=== PATIENT | female | born 1955 | race Caucasian/White ===

== ENCOUNTER 2016-12-25 18:38 | Inpatient (IN) | payer BC ==
[2016-12-25] MEDS ORDERED: NS 1000 ML 1,000 ML IV SCH (19:30)
[2016-12-25] MEDS ORDERED: HEPARIN SODIUM IN D5W 25,000 UNITS/500 ML BAG IV PRN ×2 (19:30→21:50)
[2016-12-25 20:08] LABS: ALBUMIN 3.1 g/dL (3.4-5.0); CALCIUM 9.2 mg/dL (8.5-10.1); CARBON DIOXIDE 27.7 mmol/L (21-32); COR CA(FOR HYPOALB) 9.9 mg/dL (8.5-10.1); CREATININE 1.78 mg/dL (0.55-1.02); TOTAL PROTEIN 7.1 g/dL (6.4-8.2)
[2016-12-25 20:10] LABS: BASOPHILS # (AUTO) 0.1 X10^3/uL (0.0-0.1); BASOPHILS % (AUTO) 0.5 % (0.2-1.0); EOSINOPHILS # (AUTO) 0.4 x10^3/uL (0.0-0.2); EOSINOPHILS % (AUTO) 3.5 % (0.9-2.9); HEMATOCRIT 37.4 % (36.0-47.0); HEMOGLOBIN 12.8 g/dL (12.0-16.0); LYMPHOCYTES # (AUTO) 1.4 X10^3/uL (1.3-2.9); LYMPHOCYTES % (AUTO) 13.1 % (21.0-51.0); MEAN CORPUSCULAR HEMOGLOBIN 30.6 pg (27.0-34.0); MEAN CORPUSCULAR HGB CONC 34.2 g/dL (33.0-35.0); MEAN CORPUSCULAR VOLUME 89.3 fL (80.0-100.0); MEAN PLATELET VOLUME 11.3 fL (7.4-11.0); MONOCYTES # (AUTO) 0.5 x10^3/uL (0.3-0.8); MONOCYTES % (AUTO) 4.8 % (0.0-13.0); NEUTROPHILS # (AUTO) 8.1 x10^3/uL (2.2-4.8); NEUTROPHILS % (AUTO) 78.1 % (42.0-75.0); PLATELET COUNT 137 X10^3/uL (150.0-450.0); RED BLOOD COUNT 4.19 X10^6/uL (3.5-5.4); RED CELL DISTRIBUTION WIDTH 13.8 % (11.6-16.5); WHITE BLOOD COUNT 10.4 X10^3/uL (3.6-10.0)
[2016-12-25] MEDS ORDERED: MAGNESIUM SULFATE 1 GM/100 mL PREMIX 1 GM/100 ML BAG IV PRN (20:48)
[2016-12-25] MEDS ORDERED: MAG-OX TAB PO PRN (20:48)
[2016-12-25] MEDS ORDERED: K-LYTE EFFERVESCENT PO PRN (20:48)
[2016-12-25] MEDS: HEPARIN SODIUM INJ 5000 UNITS IVP ONE (21:34)
[2016-12-25] MEDS: K-RIDER 10 MEQ/NS 100 ML 10 MEQ/100 ML BAG IV PRN ×2 (21:36→23:28)
[2016-12-25 23:39] VITALS: BMI 31.4
[2016-12-26] MEDS: K-RIDER 10 MEQ/NS 100 ML 10 MEQ/100 ML BAG IV PRN ×2 (01:22→03:48)
[2016-12-26 04:34] LABS: ALBUMIN 2.8 g/dL (3.4-5.0); CALCIUM 8.9 mg/dL (8.5-10.1); CARBON DIOXIDE 28.4 mmol/L (21-32); COR CA(FOR HYPOALB) 9.9 mg/dL (8.5-10.1); CREATININE 1.28 mg/dL (0.55-1.02); MAGNESIUM 2.1 mg/dL (1.7-2.9); TOTAL PROTEIN 6.6 g/dL (6.4-8.2)
[2016-12-26] MEDS ORDERED: TYLENOL 325 MG TAB PO PRN (05:42)
[2016-12-26 06:13] LABS: BASOPHILS # (AUTO) 0.1 X10^3/uL (0.0-0.1); BASOPHILS % (AUTO) 0.5 % (0.2-1.0); EOSINOPHILS # (AUTO) 0.6 x10^3/uL (0.0-0.2); HEMATOCRIT 36.1 % (36.0-47.0); HEMOGLOBIN 12.2 g/dL (12.0-16.0); LYMPHOCYTES # (AUTO) 2.5 X10^3/uL (1.3-2.9); LYMPHOCYTES % (AUTO) 25.6 % (21.0-51.0); MEAN CORPUSCULAR HEMOGLOBIN 30.2 pg (27.0-34.0); MEAN CORPUSCULAR HGB CONC 33.7 g/dL (33.0-35.0); MEAN CORPUSCULAR VOLUME 89.7 fL (80.0-100.0); MONOCYTES # (AUTO) 0.5 x10^3/uL (0.3-0.8); MONOCYTES % (AUTO) 5.2 % (0.0-13.0); NEUTROPHILS % (AUTO) 62.7 % (42.0-75.0); PLATELET COUNT 142 X10^3/uL (150.0-450.0); RED BLOOD COUNT 4.02 X10^6/uL (3.5-5.4); RED CELL DISTRIBUTION WIDTH 13.7 % (11.6-16.5); WHITE BLOOD COUNT 9.6 X10^3/uL (3.6-10.0)
[2016-12-26] MEDS ORDERED: NS 100 ML IV 100 ML IV ONE (10:34)
[2016-12-26] MEDS ORDERED: HEPARIN SODIUM INJ 5000 UNITS ONE (11:30)
[2016-12-26] MEDS: HEPARIN SODIUM INJ 5000 UNITS IVP ONE (11:37)
--- NOTE | 2016-12-26 11:40 | DR.UPDATE ---
H&P Update History and Physical Update: WAS SEEN IN THE OFFICE ON 12/25/16. A H&P WAS COMPLETED PRIOR TO ADMISSION. PATIENT HAS BEEN SEEN AND EXAMINED WITH NO CHANGES NOTED TO H&P. Changes noted: NO Yes with the following:
--- NOTE | 2016-12-26 12:01 | CT ---
CT angiogram chest with contrast Indication: Dyspnea with DVT. Comparison: Previous day's ultrasound. Technique: Helical images through the chest after IV contrast. Coronal and sagittal reformats provide d. MIP images provided. Findings: Limited images through the upper abdomen shows no acute abnormality. Review of bone windows shows cervical spine hardware without destructive osseous lesion. Chest: Minimal aortic arch plaque noted. Few shotty mediastinal lymph nodes noted. Heart size is prom inent. Trace pericardial fluid noted. Pulmonary artery bolus timing is adequate. There is no central or segmental pulmonary thromboembolus identified. There is no pneumothorax, effusion or consolidation. Minimal dependent atelectasis seen. Mild peribro nchial thickening increased interstitial markings noted. Impression: 1. No pulmonary thromboembolus. 2. Cardiomegaly, trace pericardial effusion and mild peribronchial thickening with increased intersti tial markings. Correlate clinically for cardiac dysfunction and developing edema. If Reported By:
[2016-12-26] MEDS ORDERED: XARELTO PO SCH (13:00)
[2016-12-26] MEDS ORDERED: AMBIEN PO PRN (13:03)
[2016-12-26] MEDS ORDERED: XARELTO PO ONE (13:04)
[2016-12-26] MEDS ORDERED: ZESTRIL TAB 20 MG ONE (13:30)
[2016-12-26] MEDS ORDERED: HYDROCHLOROTHIAZIDE 12.5 MG CAP PO SCH (14:00)
[2016-12-26] MEDS ORDERED: ZESTRIL TAB 20 MG PO SCH (14:00)
[2016-12-26 14:01] VITALS: BP 135/72
[2016-12-26] MEDS ORDERED: ZANAFLEX PO SCH (21:00)
[2016-12-26] MEDS ORDERED: PATIENT'S HOME MEDICATION (Lisinopril/Hydrochlorothiazide [Lisinopril-Hctz 20-12.5 Mg Tab] PO SCH (21:00)
== END 2016-12-26 15:25 | disposition home or self-care (01) | DRG 301 ==
LOC: ICU 18:38
PROVIDERS: ADMIT Internal Medicine; ATTEND Internal Medicine
DX: I82.402 Acute embolism and thrombosis of unspecified deep veins of left lower extremity (principal); Z86.718 Personal history of other venous thrombosis and embolism; I10 Essential (primary) hypertension; R94.31 Abnormal electrocardiogram [ECG] [EKG]; R06.00 Dyspnea, unspecified
CPT/HCPCS: 36415; 71275; 80053; 83735; 84132; 85025; 85610; 85730; A4216; A4222; J1644; J3480

== ENCOUNTER → 2016-12-25 | Outpatient (CLI) | payer BC ==
--- NOTE | 2016-12-25 18:25 | VAS ---
HISTORY: 61-year-old female with left lower extremity pain and edema. Study: Venous duplex Doppler of the left lower extremity. Comparison: None. TECHNIQUE: Multiple parada scale and color flow Doppler images of the deep venous system were obtained of the left lower extremity. FINDINGS: The deep venous system of the left evaluated from the level of the common femoral vein through the po pliteal vein. No color flow or augmentation can be observed. IMPRESSION: 1. Findings consistent with occlusive thrombus throughout the left lower extremity. Reported By:
== END | disposition home or self-care (01) ==
LOC: RAD 17:54
PROVIDERS: ATTEND Internal Medicine
DX: M79.605 Pain in left leg (principal)
CPT/HCPCS: 93971